=== PATIENT | male | born 1950 | race Caucasian/White ===

== ENCOUNTER 2016-10-02 08:22 | Inpatient (IN) | payer OTHER ==
[~2016-10-02] VITALS: Ht 172.7 cm; Wt 80.7 kg
--- NOTE | 2016-10-02 08:24 | NUR ---
AAOX2, BIB [address] FROM HOME, BOYFRIEND CALLED 911, FOUND ON THE FLOOR,ROLLING SIDE TO SIDE, SPEAKING IN TONGUES,SAYING "PEOPLE ARE HERE TO KILL MY FAMILY". SKIN IS WARM AND DRY. RESP IS EVEN AND UNLABORED WITH NAD NOTED. DR JOHNSTON AT FOR EVAL. PATIENT WAS COOPERATIVE.
--- NOTE | 2016-10-02 08:30 | NUR ---
KERMIT #20 IV ACCESS. BLOOD SAMPLE COLLECTED SENT TO LAB
--- NOTE | 2016-10-02 08:34 | NUR ---
WAYNE [address],ROLLING SIDE TO SIDE ON THE FLOOR, SAYING PEOPLE ARE HERE TO KILL HIS FAMILY, ANSWERRING SIMPLE QUESTIONS AND ABLE TO FOLLOW SIMPLE COMMANDS, PLACED ON THE MONITOR,EKG, AWAITING MD ORDERS
--- NOTE | 2016-10-02 08:40 | NUR ---
URINE SAMPLE COLLECTED SENT TO LAB
[2016-10-02 08:43] LABS: BASOPHILS % (AUTO) 0.4 % (0.0-2.0); EOSINOPHILS # (AUTO) 0.1 /CMM (0.0-0.7); EOSINOPHILS % (AUTO) 1.7 % (0.0-6.0); HEMATOCRIT 49 % (39-51); HEMOGLOBIN 16.8 g/dL (13.5-17.5); LYMPHOCYTES # (AUTO) 2.2 /CMM (0.8-4.8); LYMPHOCYTES % (AUTO) 28.7 % (20.0-44.0); MEAN CORPUSCULAR HEMOGLOBIN 31 PG (26.0-33.0); MEAN CORPUSCULAR HGB CONC 34 g/dl (31.0-36.0); MEAN CORPUSCULAR VOLUME 90 fL (80-96); MONOCYTES # (AUTO) 0.4 /CMM (0.1-1.30); MONOCYTES % (AUTO) 5.8 % (2.0-12.0); NEUTROPHILS # (AUTO) 4.9 /CMM (1.8-8.9); NEUTROPHILS % (AUTO) 63.4 % (43.0-81.0); PLATELET COUNT (AUTO) 199 /CMM (150-450); RDW COEFFICIENT OF VARIATION 13.7 (11.5-15.0); RED BLOOD CELL COUNT(AUTO) 5.49 MIL/uL (4.5-6.0); WHITE BLOOD COUNT (AUTO) 7.8 K/uL (4.3-11.0)
[2016-10-02 08:45] LABS: APPEARANCE,URINE SL CLOUDY (CLEAR); BILIRUBIN,URINE NEGATIVE (NEGATIVE); BLOOD, URINE NEGATIVE Ery/uL (NEGATIVE); COLOR,URINE YELLOW (YELLOW); KETONES,URINE NEGATIVE (NEGATIVE); LEUKOCYTE ESTERASE ,URINE NEGATIVE (NEGATIVE); NITRITE, URINE NEGATIVE (NEGATIVE); PH,URINE 7.5 (5.0-8.0); PROTEIN,URINE NEGATIVE (NEGATIVE); UGLUCOSE NEGATIVE (NEGATIVE); UROBILINOGEN,URINE 0.2 EU/dL (0.2)
[2016-10-02 08:53] LABS: CALCIUM, SERUM 9.2 mg/dL (8.5-10.1); CARBON DIOXIDE 22 mmol/L (21-32); CHLORIDE 105 mmol/L (98-107); CREATININE 1.2 mg/dL (0.6-1.3); GLUCOSE 126 mg/dL (74-106); POTASSIUM 3.5 mmol/L (3.5-5.1); SODIUM SERUM 142 mmol/L (136-145); UREA NITROGEN, BLOOD 17 mg/dL (7-18)
[2016-10-02 08:59] LABS: ALANINE AMINOTRANSFERASE 24 U/L (12-78); ALBUMIN 3.8 g/dL (3.4-5.0); ALCOHOL, BLOOD < 3 mg/dL (0-0); ALKALINE PHOSPHATASE 60 U/L (46-116); ASPARTATE AMINOTRANSFERASE 16 U/L (15-37); BILIRUBIN,DIRECT 0.1 mg/dL (0.0-0.2); BILIRUBIN,TOTAL 0.8 mg/dL (0.2-1.0)
[2016-10-02 09:05] LABS: ACETAMINOPHEN 0 ug/ml (10-30); SALICYLATE 0.2 mg/dL (2.8-20.0)
--- NOTE | 2016-10-02 09:21 | NUR ---
PAGED MIGUEL FERNÁNDEZ FOR PSYCH EVAL ETA=1 HR
--- NOTE | 2016-10-02 10:33 | NUR ---
ANH AT BEDSIDE FOR PSYCH EVAL
--- NOTE | 2016-10-02 13:26 | NUR ---
GIVEN REPORT TO EDE INTERIANO. ADMITTING PSYCHOSIS. DR MARQUEZ ADMITTING DR VU PSYCHIATRIST. 5150 HOLD IN [facility]. TRANSFER VIA [facility].
--- NOTE | 2016-10-02 13:37 | NUR ---
IV removed. Catheter intact and site benign. Pressure and 4x4 applied to site. No bleeding noted.
[2016-10-02] MEDS ORDERED: LISI10TA5 PO (14:51)
[2016-10-02] MEDS ORDERED: ALPR1TAB7 PO (14:51)
--- NOTE | 2016-10-02 14:59 | NUR ---
GPS ADMITTING NOTE: PATIENT 65 Y/O MALE ADMITTED FROM HOME FROM HOME, BOYFRIEND CALLED 911, FOUND ON THE FLOOR,ROLLING SIDE TO SIDE, SPEAKING IN TONGUES,SAYING "PEOPLE ARE HERE TO KILL MY FAMILY".AND BECAME AGGRESSIVE WITH PARTNER PT PLACED ON 5150 HOLD FOR DANGER TO SELF DANGER TO OTHERS, GRAVELY DISABLED ADULT.UPON FACE TO FACE EVALUATION PATIENT A/OX2 REFUSED TO TALK AND ANSWER QUESTIONS, PARANOID BEHAVIOR,RESTLESS DELUSIONAL, CONFUSED SUSPICIOUS HX OF BIPOLAR, PSYCHOSIS, HTN,SI.DR VU NOTIFIED WITH STANDING ORDERS, PT REFUSED TO SIGN, BELONGING CHECKED VSS STABLE, MRSA DONE IN ER. SKIN CHECKED NOTED BOTH ARMS RASH AND DISCOLORATION.WILL CONTINUE MONITORING FOR SAFETY AND BEHAVIOR Q 15 MIN
[2016-10-02] MEDS ORDERED: MAG HYDROX/AL HYDROX/SIMETH 30 ML UDC PO PRN (15:30)
[2016-10-02] MEDS ORDERED: ACETAMINOPHEN 325 MG TABLET PO PRN (15:30)
[2016-10-02] MEDS ORDERED: TEMAZEPAM 7.5 MG CAPSULE PO PRN (15:30)
[2016-10-02] MEDS ORDERED: MAGNESIUM HYDROXIDE 30 ML UDC PO PRN (15:30)
[2016-10-02] MEDS: LORAZEPAM 0.5 MG TABLET PO PRN (15:30)
--- NOTE | 2016-10-02 15:30 | NUR ---
administered ativan 0.5 mg po prn for anxiety, paranoia, v/s take 134/101, p-87, continued monitoring.
[2016-10-02 15:52] VITALS: BP_SYST 133; BP_SYST 137; BP_DIAS 105; BP_DIAS 76
--- NOTE | 2016-10-02 16:35 | NUR ---
CALLED DR. MARTELL AND WAS NOTIFIED ABOUT THE ADMISSION AND RECONCILED THE MED.
[2016-10-02 16:41] VITALS: BP 133/76
[2016-10-02 20:40] VITALS: BP 144/98
[2016-10-02 22:00] VITALS: BP 132/80
--- NOTE | 2016-10-03 06:44 | NUR ---
RN GPS NOTE PT .REMAINED IN STABLE CONDITION RESTING IN HIS BED ,NO ACUTE DISTRESS NOTED ATTENDED ALL NEEDS AND ANTICIPATED , DENIES SI/ HI AT THIS TIME, PT. REFUSED AM LABS AT THIS TIME , ENCOURAGED FOR LABS STILL REFUSED ,WILL ENDORSE TO NEXT SHIFT FOR CONTINUITY OF CARE
[2016-10-03 08:00] VITALS: BP 166/91
[2016-10-03] MEDS: LORAZEPAM 0.5 MG TABLET PO PRN (08:41)
[2016-10-03] MEDS ORDERED: LISINOPRIL (10MG) 10 MG TABLET PO SCH (09:00)
[2016-10-03 14:42] LABS: ALBUMIN 3.9 g/dL (3.4-5.0); BILIRUBIN,TOTAL 0.6 mg/dL (0.2-1.0); CALCIUM, SERUM 8.8 mg/dL (8.5-10.1); CREATININE 1.1 mg/dL (0.6-1.3); POTASSIUM 3.9 mmol/L (3.5-5.1); TOTAL PROTEIN, SERUM 7.4 g/dL (6.4-8.2)
[2016-10-03 16:00] VITALS: BP 153/92
[2016-10-03] MEDS: risperiDONE-M 0.5 MG TAB.RAPDIS PO SCH ×2 (17:00→18:19)
[2016-10-03 19:58] VITALS: BP 147/106
[2016-10-03] MEDS: DIVALPROEX SODIUM 250 MG TABLET.DR PO SCH (21:34)
[2016-10-03 22:00] VITALS: BP 130/82
[2016-10-04 08:00] VITALS: BP 160/100
[2016-10-04] MEDS: LISINOPRIL (20MG) 20 MG TABLET PO SCH (08:20)
[2016-10-04] MEDS: risperiDONE-M 0.5 MG TAB.RAPDIS PO SCH ×2 (08:20→16:32)
[2016-10-04] MEDS: DIVALPROEX SODIUM 250 MG TABLET.DR PO SCH (08:20)
[2016-10-04 10:00] VITALS: BP 109/72
--- NOTE | 2016-10-04 10:36 | NUR ---
UR Update: SW left verbal clinicals to pillowcase cleaner Jessica Gómez ([phone]) from [facility]. JAENS will follow up. AUTH # [id number]
--- NOTE | 2016-10-04 12:19 | NUR ---
Initial DC Plan: Patient resides at home with his partner Alvino located at [address] [place] [address]; [phone]. Patient stated that he wants to discharge back home when he is stable. SW spoke to the patient's brother Benjamin Mccormack ([phone]) who stated that the family is interested in placing the patient. He stated that his sister Kassandra ([phone]) might know more about his income information. Patient's brother Benjamin stated that he is on vacation and that it is okay to relay information to his sister who will then inform him. SW attempted to contact the patient's sister Kassandra ([phone]) but she did not answer and SW left her call back details. SW also attempted to contact the patient's partner Alvino ([phone]) but he did not answer and SW left a message with her contact information. Patient will be provided with referrals for substance use (as pt stated he was recently smoking marijuana a few months ago and has a past hx of overdosing on his medications).
--- NOTE | 2016-10-04 12:50 | NUR ---
JANES spoke to the patient's sister Kassandra ([phone]) who stated that she was willing to do all she can to help the patient. She stated that the patient is not but has been with his partner Alvino for several years. JANES informed her that at this point, patient is requesting to go home after he is discharged and because he is not conserved, he cannot be forced. She stated that she tried to have the patient conserved the previous admission at a different hospital. Sister stated that the patient has not been able to pay any of his bills, has not been getting his mail, and cannot take care of himself. She stated his electricity bill is overdue. She noted that the patient's partner works two jobs and is not able to fully take care of the patient during the day. 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 She states that "he probably has $100,000 in the bank but does not let anyone touch it." Sister stated that patient recently applied for social security and should have started to receive his check or if he hasn't, he should be getting them soon. However, she stated that the patient is very paranoid and he has stated that someone is probably taking his money before he even receives it. SW will speak to the patient again about placement and notify the psychiatrist about sister's concerns. She stated that she does not have the income to help the patient but that she can probably speak to her brother to see if maybe they are able to provide any assistance.
--- NOTE | 2016-10-04 13:56 | NUR ---
Sister was inquiring about conservatorship and notified her that SW will speak with the psychiatrist. Psychiatrist feels that at this time, patient does not meet criteria for conservatorship. Sister will be informed of this information.
--- NOTE | 2016-10-04 14:57 | NUR ---
Called case sealer Jessica Gómez ([phone]) from [facility] to follow up and obtain information about further authorization. She did not answer and SW left a message. SW left verbal clinicals earlier in the day .
--- NOTE | 2016-10-04 15:42 | NUR ---
Patient's boyfriend Alvino ([phone]) called the SW. He stated that he is no longer able to be in the home due to the patient's aggressive behaviors towards him. He reported that because of this, patient will remain alone in the home however, he is not able to take care of himself (has not been taking his meds, has not been eating/sleeping). SW will speak to the patient again when he is more stable in terms of placement and will remain in contact with the patient's family members.
[2016-10-04 16:00] VITALS: BP 122/90
[2016-10-04 16:01] VITALS: BP 122/90
[2016-10-04 20:08] VITALS: BP 117/80
[2016-10-04] MEDS: DIVALPROEX SODIUM 125 MG TABLET.DR PO SCH (21:21)
[2016-10-05 08:00] VITALS: BP 121/86
[2016-10-05 08:07] VITALS: BP 101/59
--- NOTE | 2016-10-05 08:16 | NUR ---
UR Update: Fredo received a message from Jessica Gómez ([phone]) from [facility] who stated that she was authorizing from 10/05-10/06 with a review due on 10/06/2016. FREDO will follow up. Auth Number: [id number]
[2016-10-05] MEDS: LISINOPRIL (20MG) 20 MG TABLET PO SCH (08:20)
[2016-10-05] MEDS: DIVALPROEX SODIUM 125 MG TABLET.DR PO SCH ×3 (08:20→17:18)
[2016-10-05] MEDS: risperiDONE-M 0.5 MG TAB.RAPDIS PO SCH ×2 (08:21→17:19)
--- NOTE | 2016-10-05 09:47 | NUR ---
Spoke to the patient regarding discharge planning. He stated that he does not want any type of placement and wants to return home when he is ready for discharge. SW informed him that family members want placement for him and he stated that he wants to go home once he is discharged. Patient is at this time still refusing placement. JANES called the patient's sister Kassandra ([phone]) to notify her of this information and to provide information regarding DPOA for finances so that she may assist the patient in paying his bills, as patient stated that his bills are overdue and does not know how to get into his bank accounts. She did not answer and SW left a message with her contact information.
[2016-10-05 16:00] VITALS: BP 98/59
--- NOTE | 2016-10-05 19:30 | NUR ---
GPS RN NOTE: RECEIVED A REPORT THAT THE BP OF THE PATIENT 76/41 P=99 R=19 T=98.1, SEEN PATIENT AWAKE, ALERT AND ORIENTED X 2-3, TALKING TO HIS FRIEND AND AGITATED. OFFERED FLUIDS TO THE PATIENT, PATIENT STARTED COMPLAINING OF THE MEDICATIONS THAT HIS GETTING IS THE RESULT OF OF HIS LOW BLOOD PRESSURE AND THE DISCOLORATION ON HIS RIGHT ARM THAT STARTED SMALL AND GETS BIGGER. PER PATIENT HE DID NOT BUMP IT, THERE WAS NO BLOOD DRAWN AND HE BELIEVED THAT IT WAS A SIDE EFFECT OF THE MEDICATION THAT HE'S GETTING AND THE LAST MEDICATION THAT THE NURSE GAVE HIM, HE HID IT ON HIS CHEEKS AND SPIT IT OUT. PATIENT APPRECIATED THE FLUIDS THAT WAS GIVEN. RECHECKED BP = 99/65 HR = 101 T = 98.1 R=22, NO SOB, NO ACUTE DISTRESS, BREATHING EVEN AND UNLABORED, WILL CONTINUE TO MONITOR [id number] FOR SAFETY
[2016-10-05 20:27] VITALS: BP 76/41
--- NOTE | 2016-10-06 07:57 | NUR ---
UR Update: SW left verbal clinicals to transplant case manager Jessica Gómez ([phone]) from [facility]. JANES will follow up. AUTH # [id number]
[2016-10-06 08:00] VITALS: BP 116/81
[2016-10-06] MEDS: risperiDONE-M 0.5 MG TAB.RAPDIS PO SCH ×2 (09:06→17:00)
[2016-10-06] MEDS: LISINOPRIL (20MG) 20 MG TABLET PO SCH (09:07)
[2016-10-06] MEDS: DIVALPROEX SODIUM 125 MG TABLET.DR PO SCH ×2 (09:08→17:00)
--- NOTE | 2016-10-06 10:59 | NUR ---
Fredo attempted to call the patient's sister Kassandra ([phone]) but she did not answer and SW left her call back details.. SW to inform her of [facility] paperwork in an attempt to have her help the patient to sort out his financials, which the patient states he is okay with.
--- NOTE | 2016-10-06 11:07 | NUR ---
Spoke to Jessica Gómez from [facility] and informed her about the patient's placement options. Per psychiatrist, patient will benefit from a partial hospitalization program to address his psychiatric needs however per Jessica she stated that patient will need a stable housing environment first. SW explained to her that the patient's boyfriend does not want to be staying there anymore however patient cannot be staying alone at his home. SW will speak with the partner and with patient's family to consider options for the patient. Jessica to provide SW with [facility] number to coordinate home health if the patient returns home. Addendum: 10/06/16 at 1207 by ZULEIKA MARRERO [facility] Phone Number: [place] [facility]- [phone].
--- NOTE | 2016-10-06 12:07 | NUR ---
Attempted to call the patient's sister again Kassandra ([phone]) but she did not answer. SW left her call back details.
--- NOTE | 2016-10-06 14:39 | NUR ---
Hiwot Gómez from the patient's insurance left a message on the SW's voicemail. She stated that a peer to peer review is due by today as it seems that it is a placement issue and to see if patient will qualify for continued stay at the hospital. JANES called her back but she did not answer and SW left a voicemail. Informed her that there is an updated progress note and provided verbal clinical to her for this updated note. Indicated psychiatrist was waiting one more day to increase dosage of the patient's medications. SW will follow up prior to the end of the day. Psychiatrist is currently unavailable for peer to peer review but will inform if it is needed. Auth Number: [id number] Addendum: 10/06/16 at 1504 by ZULEIKA MARRERO Per Jessica, peer to peer review needs to be done in order for continued authorization. She stated that even though she already has updated information pertaining to the patient's visit with the psychiatrist today, JANES needs to schedule peer to peer review with Jazzy Cheema ([phone]). JANES called Jazzy but she did not answer and SW left a message. Psychiatrist was notified about [id number] review needing to be done.
--- NOTE | 2016-10-06 15:09 | NUR ---
Received call back from Jazzy Cheema ([phone]) from the patient's insurance. She stated that [id number]-[id number] review can be scheduled today at 04:30pm or tomorrow at 7:30AM. JANES informed psychiatrist about times/day and awaiting respose. Jazzy stated that she is in the office until 5:30pm and JANES will follow up with her prior to leaving.
--- NOTE | 2016-10-06 15:24 | NUR ---
UR Update: SW scheduled [id number] review between Dr. Bradford and Dr. Baeza [phone] for 10/06/2016 at 04:30PM. Psychiatrist is informed and will call Dr. Baeza at this time. Addendum: 10/07/16 at 0840 by ZULEIKA MARRERO Per psychiatrist, patient was authorized until Tuesday.
[2016-10-06 16:00] VITALS: BP 100/73
[2016-10-06 19:54] VITALS: BP 124/80
[2016-10-06] MEDS ORDERED: DIVALPROEX SODIUM 500 MG TABLET.DR PO SCH (20:00)
[2016-10-07 08:00] VITALS: BP 143/97
--- NOTE | 2016-10-07 08:40 | NUR ---
Pt. came to the social welfare clerk's office and wanted to know what the program was the doctor told him about. SW explained how partial hospitalization program works and he was agreeable with the plan with a little resistance. Pt. continued to talk about his delusions about how his account is compromised, and people are watching him and hacking into his account, and continued to come up with different scenarios about how he feels that his identity is stolen. SW spoke with the patient for about 30 minutes and did some reality orientation and pt. appeared to like that. SW had to go home but pt. continued to say "don't leave me, stay with me". Pt. was explained that SW has to go home and will follow up with him.
--- NOTE | 2016-10-07 08:59 | NUR ---
SW spoke to the patient's sister Kassandra and stated that anticipated date of discharge is Tuesday10/11/2016. SW informed her that patient will be referred to [facility] program prior to discharge and patient will need to follow up. Sister expressed concern that patient might not go and asked if transportation was provided, which social security assessor will find out. JANES informed her that she will be speaking to the patient's partner Alvino (after 3pm due to his availability) to let him know about the plan and to see if he is able to provide any assistance. SW to work with the partner on creating a safety plan. Sister expressed that she had hoped patient would agree to placement but SW stated that because patient is unable to access his funds and family members cannot provide assistance, options are limited. Sister stated she had hoped patient would agree to stay in a one bedroom apartment at the back of her home but that she had spoken to him about this yesterday and wanted to return back to his own apartment. SW suggested that she complete DPOA paperwork with the patient and sister stated that she spoke to patient about this yesterday and it seems like he was agreeing. SW emailed patient's sister DPOA paperwork and will keep her informed regarding discharge.
[2016-10-07] MEDS: risperiDONE-M 0.5 MG TAB.RAPDIS PO SCH (09:09)
[2016-10-07] MEDS: LISINOPRIL (20MG) 20 MG TABLET PO SCH (09:10)
--- NOTE | 2016-10-07 09:12 | NUR ---
JANES faxed a referral to [facility] Partial Hospitalization Program [phone] fax [phone] . Will follow up Addendum: 10/07/16 at 1415 by KULDIP MARRERO JANES spoke with Sierra from the partial hospitalization program and they do provide transportation if the patient lives within the area.
[2016-10-07] MEDS: DIVALPROEX SODIUM 125 MG TABLET.DR PO SCH ×2 (12:44→18:03)
--- NOTE | 2016-10-07 12:44 | NUR ---
GPS/RN ADMINISTERED DEPAKOTE 250 MG AT 1244 DUE TO MEDICATION BEING ABSENT FROM [facility].
--- NOTE | 2016-10-07 14:16 | NUR ---
UR Update: SW received call from insurance case manager Jessica Gómez ([phone]) from [facility] who stated that patient is authorized until Tuesday10/10/2016 with a review due on Tuesday10/11/2016. She stated that she will not be in the office and to please give verbal review to Jessica Marrufo ([phone]). Auth Number: [id number]
--- NOTE | 2016-10-07 15:32 | NUR ---
Left a message for patient's partner Alvino ([phone]) to inform him that the plan is to discharge the patient back home on Tuesday with partial hospitalization. Per the patient, Alvino has the pradhan and JANES left a message with contact information. JANES will attempt to contact the patient's partner again at a later time.
--- NOTE | 2016-10-07 15:48 | NUR ---
Spoke to the patient's partner Alvino ([phone]) and notified him that anticipated date of discharge is for Tuesday October 11, 2016. SW stated that patient has been referred to [facility] [phone] fax [phone] who will follow up with the patient. Per program, they provide transportation since patient lives within the area. He stated that he would be home by 6pm Tuesday and that patient can be sent in a taxi to their apartment. SW will follow up prior to discharge.
[2016-10-07 16:00] VITALS: BP 115/81
--- NOTE | 2016-10-07 19:30 | NUR ---
GPS RN NOTE, RECEIVED PATIENT AWAKE AND IN BED, NO S/S OR COMPLAINTS OF PAIN AT THIS TIME. PATIENT IS DISPLAYING NO S/S OF APPARENT DISTRESS AT THIS TIME. PATIENT BREATHING IS UNLABORED WITH EQUAL RISE AND FALL OF THE CHEST. PATIENT IS ALERT AND ORIENTED X 3 ON ROOM AIR WITH A SPO2 97%. PATIENT COMPLAINT WITH MEDICATION, ANXIOUS, COOPERATIVE, DELUSIONAL, FOCUSED ON HIS IDENTITY, AND NEEDS REORIENTATION. PATIENT DENIES SUICIDE AND HOMICIDAL IDEATIONS AT THIS TIME. PATIENT ASSISTED WITH TURNING AND REPOSITIONING Q2HR AND PRN FOR COMFORT AND CIRCULATION. PATIENT HAS NO NEEDS AT THIS TIME. PATIENT EDUCATED ON THE USE OF THE CALL SAENZ. PATIENT BED SIDE RAILS UP X2 FOR SAFETY, BED IS LOCKED AND LOW WILL CONTINUE TO MONITOR AND MAINTAIN SAFETY.
[2016-10-07 20:00] VITALS: BP_SYST 109; BP_SYST 128; BP_DIAS 74; BP_DIAS 94
[2016-10-07] MEDS ORDERED: risperiDONE-M 0.5 MG TAB.RAPDIS PO SCH (20:00)
[2016-10-07] MEDS: DIVALPROEX SODIUM 250 MG TABLET.DR PO SCH (20:52)
[2016-10-08 07:19] LABS: BASOPHILS % (AUTO) 0.5 % (0.0-2.0); EOSINOPHILS # (AUTO) 0.1 /CMM (0.0-0.7); EOSINOPHILS % (AUTO) 2.7 % (0.0-6.0); HEMATOCRIT 46 % (39-51); HEMOGLOBIN 15.6 g/dL (13.5-17.5); LYMPHOCYTES # (AUTO) 1.8 /CMM (0.8-4.8); LYMPHOCYTES % (AUTO) 35.5 % (20.0-44.0); MEAN CORPUSCULAR HEMOGLOBIN 31 PG (26.0-33.0); MEAN CORPUSCULAR HGB CONC 34 g/dl (31.0-36.0); MEAN CORPUSCULAR VOLUME 91 fL (80-96); MONOCYTES # (AUTO) 0.5 /CMM (0.1-1.30); NEUTROPHILS # (AUTO) 2.7 /CMM (1.8-8.9); NEUTROPHILS % (AUTO) 52.3 % (43.0-81.0); PLATELET COUNT (AUTO) 155 /CMM (150-450); RDW COEFFICIENT OF VARIATION 14.1 (11.5-15.0); RED BLOOD CELL COUNT(AUTO) 5.03 MIL/uL (4.5-6.0); WHITE BLOOD COUNT (AUTO) 5.1 K/uL (4.3-11.0)
[2016-10-08 07:40] LABS: ALBUMIN 3.2 g/dL (3.4-5.0); BILIRUBIN,TOTAL 0.4 mg/dL (0.2-1.0); CALCIUM, SERUM 8.6 mg/dL (8.5-10.1); CREATININE 0.9 mg/dL (0.6-1.3); POTASSIUM 4.1 mmol/L (3.5-5.1); TOTAL PROTEIN, SERUM 6.1 g/dL (6.4-8.2)
[2016-10-08 08:00] VITALS: BP 110/78
[2016-10-08] MEDS: LISINOPRIL (20MG) 20 MG TABLET PO SCH (08:02)
[2016-10-08] MEDS: risperiDONE-M 0.5 MG TAB.RAPDIS PO SCH ×3 (08:02→21:01)
[2016-10-08] MEDS: DIVALPROEX SODIUM 125 MG TABLET.DR PO SCH ×2 (08:03→16:53)
--- NOTE | 2016-10-08 11:07 | NUR ---
Left a message for Erika from [facility] Hospital[facility] program ([phone]) to follow up on status of referral and to inform her that patient's discharged is scheduled for Tuesday. Left contact information. JANES will follow up.
--- NOTE | 2016-10-08 12:10 | NUR ---
GPS RN NOTE: RECEIVED PATIENT ALERT SITTING ON BED. PATIENT IS WITHDRAWN. NEED TO ASK SAME QUESTION SEVERAL TIMES IN ORDER FOR PATIENT TO RESPOND. NEED TO REORIENT. DENIES SI/HI AND PAIN AT THIS TIME. ALL NEEDS MET AND ANTICIPATED. WILL CONTINUE TO MONITOR FOR SAFETY AND BEHAVIOR.
--- NOTE | 2016-10-08 15:28 | NUR ---
Janes spoke with Erika from [facility] program ([phone]) to follow up on status of referral. Informed her that patient was being discharged Tuesday and she stated patient will be able to attend their program starting on Tuesday at 8:45AM at their location at [address] [place] [address]. JANES provided contact numbers for the patient ([phone]), patient's sister Kassandra, and patient's partner Alvino. She stated that she will call them to arrange to pecan picker the patient Tuesday morning.
[2016-10-08 16:00] VITALS: BP 107/80
--- NOTE | 2016-10-08 16:01 | NUR ---
Spoke to the patient's boyfriend Alvino ([phone])and spoke to him about the patient's discharge. SW worked with him on establishing a safety plan. JANES stated that if he feels unsafe, he is to call 911 right away. Alvino stated that he has spoken to the patient about this and that he agreed to work together with his partner in order to get better. He stated that he will be staying with the patient when he is not working as long as the patient is attending his partial hospitalization program. He agrees with the discharge plan to send him back home and will talk to the patient about needing to attend the PHP program beginning on Wednesday October 12, 2016.
--- NOTE | 2016-10-08 17:29 | NUR ---
RN-CO: Notified Dr Bradford regarding the results of EKG.
[2016-10-08 20:00] VITALS: BP 112/78
[2016-10-08] MEDS: DIVALPROEX SODIUM 250 MG TABLET.DR PO SCH (21:03)
--- NOTE | 2016-10-09 07:30 | NUR ---
received pt. alert and oriented x3.no complaints offered.
[2016-10-09 08:00] VITALS: BP 139/89
[2016-10-09] MEDS ORDERED: INVEGA IM ONE (09:00)
[2016-10-09] MEDS: risperiDONE-M 0.5 MG TAB.RAPDIS PO SCH ×3 (09:43→21:15)
[2016-10-09] MEDS: LISINOPRIL (20MG) 20 MG TABLET PO SCH (09:44)
[2016-10-09] MEDS: DIVALPROEX SODIUM 125 MG TABLET.DR PO SCH ×2 (09:44→16:53)
--- NOTE | 2016-10-09 15:00 | NUR ---
dr. romero, in to see pt.
[2016-10-09 16:00] VITALS: BP 122/88
[2016-10-09 20:00] VITALS: BP 111/74
[2016-10-09] MEDS: DIVALPROEX SODIUM 250 MG TABLET.DR PO SCH (21:14)
[2016-10-10 08:00] VITALS: BP 125/78
[2016-10-10] MEDS: risperiDONE-M 0.5 MG TAB.RAPDIS PO SCH ×3 (08:18→19:45)
[2016-10-10] MEDS: DIVALPROEX SODIUM 125 MG TABLET.DR PO SCH ×2 (08:19→17:16)
[2016-10-10] MEDS: LISINOPRIL (20MG) 20 MG TABLET PO SCH (08:19)
[2016-10-10 16:00] VITALS: BP 104/69
[2016-10-10] MEDS: DIVALPROEX SODIUM 250 MG TABLET.DR PO SCH (19:45)
[2016-10-10 19:55] VITALS: BP 98/69
--- NOTE | 2016-10-10 21:02 | NUR ---
GPS/RN NOTE: PATIENT IS SITTING AT THE EDGE OF THE BED WITH HIS PARTNER VISITING. NO COMPLAINTS AT THE TIME. CALM AND QUIET, NO ACUTE DISTRESS NOTED.
[2016-10-11 08:00] VITALS: BP 127/88
[2016-10-11] MEDS: risperiDONE-M 0.5 MG TAB.RAPDIS PO SCH ×2 (08:53→12:46)
[2016-10-11] MEDS: LISINOPRIL (20MG) 20 MG TABLET PO SCH (08:53)
[2016-10-11] MEDS: DIVALPROEX SODIUM 250 MG TABLET.DR PO SCH ×2 (09:26→16:45)
--- NOTE | 2016-10-11 10:28 | NUR ---
SW received a call from Pilar To ([phone]) piano case maker from [facility] who stated that she was going to take over the case and the discharge summary could be left on her voicemail if she does not answer. cab worker will follow-up.
[2016-10-11 16:00] VITALS: BP 115/82
--- NOTE | 2016-10-11 16:45 | NUR ---
Discharge Note: Patient will be discharged back home [address] [address], [place] [address]; [phone] via taxi. Patient's partner Alvino ([phone]) will be home to meet the patient. Patient's sister ([phone]) was also notified. Patient, patient's partner, and patient's sister are agreeable with the discharge plan. Patient denies suicidal and homicidal ideations. Patient will follow-up Tuesday10/11/16 at 8:45AM with the [place] [facility] program ([phone]) at [address] [place], [place]. also referred patient to [address] [place] [id number] [facility] [address] ([phone]). Patient was referred to [facility] [address] [facility] for an intake appointment for Tuesday 2-4:30pm for marijuana use. Facilitated info to IDT team who are in agreement with discharge arrangement. The multidisciplinary exitcare form was done, printed, signed, and given to the patient.
[2016-10-11] MEDS ORDERED: DIVALPROEX SODIUM 250 MG TABLET.DR PO SCH (17:00)
--- NOTE | 2016-10-11 18:30 | NUR ---
[id number]: PT IS 65 YEARS MALE [place] HOME [place] [address] [facility], [facility]. [address] IN STABLE CONDITION. COMPLIANT WITH MEDICATIONS, COOPERATIVE WITH TREATMENT PLANS. PT DENIES SI/HI AND INSTRUCTED TO GO TO THE CLOSEST ER IF DEVELOPING SI/HI. BEHAVIOR IMPROVED, PSYCHIATRIC TX PLANS MET, MEDICAL TX PLANS DEFERRED CONTINUAL MONITORING. EDUCATED PT ABOUT AFTER CARE PLAN AND COPY PROVIDED. RETURN PERSONAL BELONGINGS TO PT. MEDICATIONS RECONCILED WITH DR. MARTELL AND DR. VU. PT REFUSED TO SIGN DISCHARGE PAPERWORK. SKIN ASSESSMENT DONE. PT LEFT THE UNIT ACCOMPANIED BY STAFF VIA [email or web address]. Addendum: 10/11/16 at 1853 by CAROLINE CEBALLOS RN PT IS GOING TO FOLLOW UP WITH [facility] . PT REFUSED SKIN ASSESSMENT AT THIS TIME. NOT COMPLETED SKIN ASSESSMENT
--- NOTE | 2016-10-12 09:28 | NUR ---
PRADEEP Florian received a call from Alvino patient's partner who stated that [facility] had not contacted them yet. Fredo attempted to contact Erika from [facility] program ([phone]) to follow-up. However, Erika was unavailable. Fredo left Erika a detailed voicemail with her contact information. Fredo will follow-up.
--- NOTE | 2016-10-12 09:47 | NUR ---
UR update: JANES To ([phone]) patient case manager from [facility] a voicemail with the discharge summary.
--- NOTE | 2016-10-12 16:33 | NUR ---
chute worker received a call from Erika from [facility] program ([phone]) who stated that she forgot to follow-up with patient regarding transportation. Erika stated that she had called the patient and was unable to get a hold of him. Fredo provided Erika with patient's partner contact information Alvino ([phone]) and advised her to follow-up with him. Erika stated that she will follow-up and will set up transportation so that patient can begin the Partial Hospitalization program tomorrow 10/13/16. Fredo informed patient's partner Alvino ([phone]).
== END 2016-10-11 18:30 | disposition home or self-care (01) | DRG 885 ==
LOC: ER 08:23 → GPS 13:01
PROVIDERS: ADMIT Psychiatry & Neurology Psychosomatic Medicine; ATTEND Internal Medicine
DX: F29 Unspecified psychosis not due to a substance or known physiological condition (principal); F32.3 Major depressive disorder, single episode, severe with psychotic features; I10 Essential (primary) hypertension; M19.90 Unspecified osteoarthritis, unspecified site; Z79.899 Other long term (current) drug therapy; Z73.6 Limitation of activities due to disability; F31.9 Bipolar disorder, unspecified
CPT/HCPCS: 36415; 80048-TC; 80053-TC; 80076-TC; 80164-TC; 80305; 81000-TC; 83735-TC; 85025-TC; 87081-TC; A4606; G0480; Z7610